=== PATIENT | male | born 2000 | race Caucasian/White ===

== ENCOUNTER 2022-01-20 14:36 | Outpatient (RCR) | payer BC, SELFPAY ==
--- NOTE | 2022-01-20 16:22 | HP.PTEVAL ---
Patient's Visit Information ENRIQUE LONG is a 21 year old M referred to Physical Therapy by Dr. Jeronimo Chavarria DPM with a diagnosis of L ankle sprain, L Achilles tendonitis. Date of Evaluation: 01/20/22 Physical Therapist: Aj Momin DPT - Visit Plan Frequency: 2x /Week Duration: 4 Weeks Plan: Start with active ankle ROM, calf stretching, progress to banded strengthening. Add in walking program and functional strengthening as tolerated. May use US initially to reduce symptoms 2-3 visits. - Subjective Pt. is here today for his initial evaluation with diagnosis of L ankle sprain, Achilles tendonitis. Initial injury was ~4 weeks ago. He was in a CAM boot for a bit but felt like it was making it worse. He reports 1/10 pain currently. He reports pain increases with walking (prolonged), negotiating stairs. Decrease pain: elevation, rest. Pt. is taking Tylenol. No night pain. He does work at a [employer] where he does have to stand up to 6 hours a time. He has tried any formal exercises, no icing yet. He has had an Xray- no acute finding, no MRI yet. He report playing video games. - Pain L lateral ankle Pain Intensity (Out of 10): 1 Pain Intensity Range: 0, 5 - Objective POSTURE: Pt. has increased lateral wt. shift to R side. Pt. has L foot in everted position as well. Tends to be in slight supinated position as well. PALPATION: pt. has some mild swelling, non pitting. No bruising noted. Pt. is tender along ATFL and CFL, he also has tenderness along distal Achilles. NEURO: normal sensation and DTR of BLEs. ROM: R ankle: DF 14deg, PF 48deg, INV 20deg, EVR 13deg. L ankle: DF 6deg increase NW, PF 38deg, INV 12deg increase NW, EVR 8deg increase NW. Normal knee ROM noted bilaterally. MMT: RLE 5/5 throughout ankle and knee; hip: flexion 4+/5, abd 4/5, ext 4/5. LLE: ankle DF 4/5, PF 4/5, INV 4/5, EVR 4/5 increase NW with all testing of L ankle. L knee 5/5; hip: flexion 4/5, adb 4/5, ext 4/5. GAIT: pt. ambulates without AD, he has slight antalgic pattern during L stance phase. He has marked increased supination of BLEs with increased L ankle EVR noted. He has slight antalgic pattern during L stance phase. SPECIAL TESTING: pain with talar tilt, pain with calcaneal tilt. No laxity noted, but marked guarding noted. - Balance/Special Test Scores Lower Extremity Functional Score: 44 - Goals Goal 1:: LTG: Pt. to be I with HEP. Goal Time Frame: 4-6 Weeks Goal 2:: STG: Pt. to be able to stand for 2 hours with 0-2/10 pain allowing for increase tolerance to functional mobility. Goal Time Frame: 2-4 Weeks Goal 3:: STG: pt. to have full ROM of L ankle without pain symmetrical to R side. Goal Time Frame: 2 Weeks Goal 4:: LTG: Pt. to have increased L ankle strength to 5/5 without increase in symptoms. Goal Time Frame: 4-6 Weeks Goal 5:: LTG: Pt. to ambulate with normal gait pattern for 750' without increase in symptoms. Goal Time Frame: 4-6 Weeks Goal 6:: LTG: Pt. to complete all work related activities including standing for 6 hour work shift with 0-2/10 pain in L ankle. Goal Time Frame: 4-6 Weeks - Rehabilitation Potential Physical Therapy Diagnosis: Pt. has signs and symptoms consistent with L ankle sprain and L achilles tendonitis. He has marked pain to lateral ankle along ATFL and CFL. He also has increased pain limited all planes of L ankle mobility and increased pain with walking. He would benefit from PT to increase his ROM, progressing to strengthening and gait progress as tolerated. Rehabilitation Potential: Excellent - Anticipated Interventions Patient/Client Instruction: Educate patient on: Condition, Plan of Care, Risk Factors, Benefits of Fitness Program For the Purpose of:: To facilitate caregiver knowledge, To improve self management, To prevent re-injury, To improve ability to perform tasks related to life management, To improve tolerance to ADL's Therapeutic Exercise to Include: Strength training, Power training, Endurance training, Postural training, Flexibilty training, Gait and locomotor training, Passive ROM, Active ROM For the Purpose of:: To decrease pain, To increase ROM, To improve nutrient delivery to tissue, To increase oxygenation perfusion, To improve muscle performance and motor function, To improve ability of physical actions for home/community/work/leisure, To improve gait and locomotor functions, To improve health of tissue, To decrease soft tissue restriction, To increase flexibility/ROM Ultrasound (thermal/non thermal): Yes For the Purpose of:: To decrease pain, To decrease swelling/inflammation, To increase ROM, To improve nutrient delivery to tissue, To increase oxygenation perfusion Thank you for the opportunity to evaluate your patient. For Medicare and Medicare HMO plans, please review the plan of care and approve it. It will need to be FAXED BACK to us at [phone] for Medicare purposes. For Medicare only, by signing this I certify the plan of care. Please let me know if there are questions or concerns regarding this plan of care. Physician Signature: Date:
== END 2022-01-20 19:00 | disposition home or self-care (01) ==
LOC: PT 14:36
PROVIDERS: PCP Family Medicine; Referring Provider Podiatrist; Visit Provider Podiatrist
DX: S93.402D Sprain of unspecified ligament of left ankle, subsequent encounter (principal); X58.XXXD Exposure to other specified factors, subsequent encounter; M76.62 Achilles tendinitis, left leg
CPT/HCPCS: 97035; 97110; 97161